=== PATIENT | female | born 1945 | race Caucasian/White ===

== ENCOUNTER 2016-09-24 07:44 | Emergency (ER) | payer OTHER ==
--- NOTE | 2016-09-24 08:04 | EDPHY ---
HPI/HX/ROS/PE/MDM Narrative: CHIEF COMPLAINT: Fall, syncope HPI: The patient is a 71-year-old female with no known history of stroke or cardiovascular disease. She states she has been in her usual state of health until last night. She had approximately 2 glasses of wine last night but did not feel any abnormal effects from this. At approximately 2:00 a.m., she woke up to use the bathroom. After standing up from the toilet she felt very dizzy and lightheaded. She let her dog out of the back door and then woke up on the ground having hit her head and passed out. She apparently then woke up and lost consciousness again. After this, she went back to bed. She currently complains of pain to her posterior head as well as continued sense of being off balance. The patient reports that over the last month she has had several episodes of feeling off balance, feeling that her eyes are doing strange things and one episode in which she lost most of the vision in her right eye for approximately 5 minutes. She did not seek medical attention for this. She currently denies any numbness, weakness or tingling. She recently had some botox injections to the face. REVIEW OF SYSTEMS: Aside from elements discussed in the HPI, a comprehensive 10-point review of systems was reviewed and is negative. PMH: No history of stroke. No history of diabetes. SOCIAL HISTORY: . Owns her own business. Denies drug abuse. PHYSICAL EXAM: General:Patient is alert, in no acute distress. Head: Swelling and mild depression noted to posterior head. No lacerations seen. ENT:Eyes are normal to inspection. ENT inspection normal. Neck: Normal inspection. Full range of motion. Respiratory:No respiratory distress. Breath sounds normal bilaterally. Cardiovascular: Regular rate and rhythm. Strong peripheral pulses. Normal cap refill. Abdomen:The abdomen is nontender to palpation. There are no peritoneal signs. There are normal bowel sounds. Back: Normal to inspection. No tenderness to palpation. Skin: Normal color. No rash. Warm and dry. Extremities: Normal appearance. Full range of motion. Neuro: Oriented x3. Normal motor function. Normal sensory function. No pronator drift. Normal finger-nose bilaterally. Cranial nerves intact. Small subtle left-sided facial droop is present, but this goes completely away when I asked the patient to show me her teeth. ED Course: EKG was ordered and interpreted by myself. Please see [facility] system for official reading. Impression: NSR. CTH: read by Dr. Webster as normal. MRI Brain: ready by Dr. Acosta as negative for acute pathology. MDM: This patient presents after syncopal episode this morning. By history, this sounds likely secondary to some combination of dehydration, post micturition syncope, possibly alcohol use. Performed an extensive workup in the ER which is negative for signs of cardiac arrhythmia, renal failure, electrolyte abnormality or anemia. Her CT head is negative for signs of severe head trauma. Given her ongoing neurologic symptoms, I felt that an MRI was necessary in order to rule out stroke or possible TIA. Luckily, this test is negative. The patient is comfortable following up with her primary physician for further workup. - Data Points Laboratory Results: Laboratory Results 09/24/16 08:05 09/24/16 08:05 09/24/16 09/24/16 09/24/16 08:05 08:05 08:05 WBC 9.37 10^3/uL 10^3/uL (3.80-9.50) RBC 4.10 10^6/uL L 10^6/uL (4.18-5.33) Hgb 13.0 g/dL g/dL (12.6-16.3) Hct 38.2 % % (38.0-47.0) MCV 93.2 fL fL (81.5-99.8) MCH 31.7 pg pg (27.9-34.1) MCHC 34.0 g/dL g/dL (32.4-36.7) RDW 13.5 % % (11.5-15.2) Plt Count 211 10^3/uL 10^3/uL (150-400) MPV 11.3 fL fL (8.7-11.7) Neut % (Auto) 84.6 % H % (39.3-74.2) Lymph % (Auto) 10.5 % L % (15.0-45.0) [place] % (Auto) 3.6 % L % (4.5-13.0) Eos % (Auto) 0.5 % L % (0.6-7.6) Baso % (Auto) 0.5 % % (0.3-1.7) Nucleat RBC Rel Count 0.0 % % (0.0-0.2) Absolute Neuts (auto) 7.92 10^3/uL H 10^3/uL (1.70-6.50) Absolute Lymphs (auto) 0.98 10^3/uL L 10^3/uL (1.00-3.00) Absolute Monos (auto) 0.34 10^3/uL 10^3/uL (0.30-0.80) Absolute Eos (auto) 0.05 10^3/uL 10^3/uL (0.03-0.40) Absolute Basos (auto) 0.05 10^3/uL 10^3/uL (0.02-0.10) Absolute Nucleated RBC 0.00 10^3/uL 10^3/uL (0-0.01) Immature Gran % 0.3 % % (0.0-1.1) Immature Gran # 0.03 10^3/uL 10^3/uL (0.00-0.10) PT 13.1 SEC SEC (12.0-15.0) INR 1.00 (0.83-1.16) APTT 24.2 SEC SEC (23.0-38.0) Sodium 141 mEq/L mEq/L (134-144) Potassium 4.1 mEq/L mEq/L (3.5-5.2) Chloride 105 mEq/L mEq/L (97-110) Carbon Dioxide 24 mEq/l mEq/l (22-31) Anion Gap 12 mEq/L mEq/L (8-16) BUN 30 mg/dL H mg/dL (7-23) Creatinine 0.8 mg/dL mg/dL (0.6-1.0) Estimated GFR > 60 Glucose 144 mg/dL H mg/dL (70-100) Calcium 9.5 mg/dL mg/dL (8.5-10.4) Troponin I < 0.012 ng/mL ng/mL (0-0.034) General Time Seen by Provider: 09/24/16 07:51 Initial Vital Signs: Initial Vital Signs Temperature (C) 36.4 C 09/24/16 07:48 Heart Rate 74 09/24/16 07:48 Respiratory Rate 20 09/24/16 07:48 Blood Pressure 138/76 H 09/24/16 07:48 O2 Sat (%) 96 09/24/16 07:48 O2 Delivery Mode Room Air Allergies/Adverse Reactions: No Known Allergies Allergy (Unverified 08/12/12 20:17) Home Medications: Medication Instructions Recorded Estrogens, Conjugated [Premarin] 0.625 mg PO Q2EVEN 12/05/11 celeCOXIB [Celebrex] 200 mg PO DAILY 12/05/11 Ondansetron Odt [Zofran Odt] 4 mg PO Q4PRN PRN #10 tab 09/24/16 Departure - Departure Disposition: Home, Routine, Self-Care Clinical Impression: Syncope Condition: Good Instructions: Syncope (ED) Additional Instructions: Follow-up with your primary doctor within 72 hours. Return to the Emergency Department for fever, chest pain, numbness, weakness or tingling, shortness of breath, increasing pain or other worsening of condition. Referrals: Emily Centeno MD [Primary Care Provider] - As per Instructions Prescriptions: Ondansetron Odt [Zofran Odt] 4 mg PO Q4PRN PRN #10 tab PRN Reason: Nausea
--- NOTE | 2016-09-24 08:05 | CPEKG ---
Heart Rate: 78 RR Interval: 769 P-R Interval: 156 QRSD Interval: 78 QT Interval: 400 QTC Interval: 456 P [place]: 78 QRS [place]: 66 T Wave [place]: 48 EKG Severity - NORMAL ECG - EKG Impression: SINUS RHYTHM Electronically Signed By: Myron Sharma 24-Sep-2016 14:52:39
[2016-09-24 08:12] LABS: % IMMATURE GRANULYOCYTES 0.3 % (0.0-1.1); ABSOLUTE IMMATURE GRANULOCYTES 0.03 10^3/uL (0.00-0.10); ADD DIFF? NO; ADD MORPH? NO; ADD SCAN? NO; ATYPICAL LYMPHOCYTE FLAG 10 (0-99); FRAGMENT RBC FLAG 0 (0-99); HEMATOCRIT 38.2 % (38.0-47.0); LEFT SHIFT FLG 0 (0-99); LIPEMIA HEMOLYSIS FLAG 90 (0-99); MEAN CELL HEMOGLOBIN 31.7 pg (27.9-34.1); MEAN CELL VOLUME 93.2 fL (81.5-99.8); MEAN PLATELET VOLUME 11.3 fL (8.7-11.7); PLATELET CLUMPS FLAG 0 (0-99); PLATELET COUNT 211 10^3/uL (150-400); RED CELL DISTRIBUTION WIDTH 13.5 % (11.5-15.2)
[2016-09-24 08:28] LABS: PROTIME(PATIENT) 13.1 SEC (12.0-15.0)
[2016-09-24 08:30] LABS: ANION GAP 12 mEq/L (8-16); CALCIUM 9.5 mg/dL (8.5-10.4); CARBON DIOXIDE 24 mEq/l (22-31); CHLORIDE 105 mEq/L (97-110); CREATININE 0.8 mg/dL (0.6-1.0); GLOMERULAR FILTRATION RATE > 60; GLUCOSE 144 mg/dL (70-100); POTASSIUM 4.1 mEq/L (3.5-5.2); SODIUM 141 mEq/L (134-144)
[2016-09-24 08:43] LABS: TROPONIN I < 0.012 ng/mL (0-0.034)
[2016-09-24 08:46] LABS: APTT 24.2 SEC (23.0-38.0)
[2016-09-24 09:25] VITALS: RESP 16
[2016-09-24] MEDS ORDERED: ONDANSETRON 4 MG/2 ML VIAL ONE (10:49)
[2016-09-24] MEDS ORDERED: ONDANSETRON 4 MG/2 ML VIAL IVP ONE (10:55)
[2016-09-24] MEDS ORDERED: MECLIZINE HCL 25 MG TAB PO ONE ×2 (11:01→11:02)
[2016-09-24] MEDS ORDERED: ACETAMINOPHEN 500 MG TAB PO ONE (12:16)
[2016-09-24 12:18] VITALS: BP 127/72; PULSE 76; TEMP 98.2; O2SAT 98
== END 2016-09-24 12:26 | disposition home or self-care (01) ==
DX: R55 Syncope and collapse (principal)
CPT/HCPCS: 70450; 70551; 93005; 96374; 99285; J2405

== ENCOUNTER 2016-10-18 14:48 | Emergency (ER) | payer OTHER ==
[2016-10-18 14:55] VITALS: O2SAT 97
--- NOTE | 2016-10-18 15:38 | CPEKG ---
Heart Rate: 66 RR Interval: 909 P-R Interval: 164 QRSD Interval: 86 QT Interval: 392 QTC Interval: 411 P [place]: 68 QRS [place]: 41 T Wave [place]: 32 EKG Severity - NORMAL ECG - EKG Impression: SINUS RHYTHM Electronically Signed By: Verna Hernández 19-Oct-2016 00:13:50
--- NOTE | 2016-10-18 16:04 | EDPHY ---
H & P Stated Complaint: dizzyness a night x 1 week/seen 3 wks ago for same/full neuro cardiac jailyn Source: Patient, Family, Old records Exam Limitations: No limitations - Personal History Current Tetanus/Diphtheria Vaccine: Yes - Medical/Surgical History Hx Asthma: No Hx Chronic Respiratory Disease: No Hx Diabetes: No Hx Cardiac Disease: No Hx Renal Disease: No Hx Cirrhosis: No Hx Alcoholism: No Hx HIV/AIDS: No Hx Splenectomy or Spleen Trauma: No Other PMH: botox fillers to mouth tuesday - Social History Smoking Status: Never smoked HPI/ROS: CHIEF COMPLAINT: Dizziness, lightheadedness, sent by PCP for CT scan HISTORY OF PRESENT ILLNESS: patient reports 1 week history of feeling dizzy and lightheaded. This is after having similar complaints starting August 25 that had resolved for several days prior to returning. No headache. No neck pain. No chest pain. No syncope since September 24. The initial event was a vasovagal episode resulting in a closed head injury. She was seen and treated here. She was doing well until a week ago when she had return of her dizziness and lightheadedness. Symptoms are worse when she lays down and sits up from that position. There are sometimes worse when ambulating. She has no new trauma or injury. She is not taking blood thinners. She contacted her primary care physician Dr. Centeno, and they recommended that she have another CT scan performed. No other associated complaints or modifying factors. REVIEW OF SYSTEMS: Ten systems reviewed and are negative unless otherwise noted in the HPI PERTINENT MEDICAL HISTORY: Reviewed EXAMINATION General Appearance: Alert, no distress Head: normocephalic, atraumatic. No hematoma. No depression. No Murdock sign. No raccoon eyes. Eyes: Pupils equal and round, no conjunctival pallor or injection ENT, Mouth: Mucous membranes moist . Uvula midline. No erythema or edema. Neck: Normal inspection, supple, non-tender . Painless range of motion all planes. No meningismus. Respiratory: Lungs are clear to auscultation . No wheezing, rhonchi or crackles. Cardiovascular: Regular rate and rhythm . No murmur. Gastrointestinal: Abdomen is soft and nontender Back: non-tender, no bony abnormalities Neurological: GCS 15. A&O, nonfocal, normal gait. Strength is symmetric in all 4 limbs. No pronator drift. No dysmetria. Skin: Warm and dry, no rash . No petechiae or purpura. No lacerations or abrasions. Extremities: Nontender, no pedal edema Psychiatric: Mood and affect normal DIFFERENTIAL DIAGNOSES: Including but not limited to Postconcussion syndrome, vertigo, electrolyte disturbance, dizziness, lightheadedness, dehydration MDM: 4:05 p.m. ongoing dizziness and lightheadedness. Patient had an initial injury on September 24. She had normal CT scan that they. Normal MRI scan that day. She had several days of resolution until 1 week ago. At this time she has no focal deficits. Her neuro exam is completely normal. I will order CT scan of the head at the request of her primary care physician. The patient is comfortable this plan. 4:20 p.m. notified by radiologist Dr. Kang. CT scan of the head is unremarkable for any acute findings. 4:25 p.m. I have re-evaluated the patient. She is feeling well. I have updated her regarding the negative CT scan findings. She is comfortable being discharged home at this time. I will refer her to Dr. Jimenez as well as her primary care physician. We will try a lower dose of the meclizine that she has at home as it has made her too sleepy. She is comfortable with this plan and discharged home in stable condition, neuro intact and ambulatory without assistance. SUPERVISION: Independently evaluated case discussed with Dr. Hernández ([place]) Constitutional: Initial Vital Signs Temperature (C) 36.9 C 10/18/16 14:52 Heart Rate 82 10/18/16 14:52 Respiratory Rate 18 10/18/16 14:52 Blood Pressure 148/86 H 10/18/16 14:52 O2 Sat (%) 97 10/18/16 14:52 O2 Delivery Mode Room Air Allergies/Adverse Reactions: No Known Allergies Allergy (Verified 10/18/16 14:52) Home Medications: Medication Instructions Recorded Estrogens, Conjugated [Premarin] 0.625 mg PO Q2EVEN 12/05/11 celeCOXIB [Celebrex] 200 mg PO DAILY 12/05/11 Ondansetron Odt [Zofran Odt] 4 mg PO Q4PRN PRN #10 tab 09/24/16 Meclizine HCl [Meclizine HCl 12.5 12.5 mg PO BID #12 tab 10/18/16 mg (*)] Medical Decision Making Other Provider: The patient wasevaluatedand managed by themidlevel provider. Idiscussed the patient's presentation and course with thephysicianassistantor nurse practitionerand agree with theevaluation. My co-signature indicates that I have reviewed this chart and I agree with the findings and plan of care as documented. I am the secondary supervisingphysician. (Verna Hernández) Departure - Departure Disposition: Home, Routine, Self-Care Clinical Impression: Dizziness, Post concussion syndrome Condition: Good Instructions: Post Concussion Syndrome (ED), Lightheadedness (ED), Dizziness ( ED) Additional Instructions: meclizine 12.5 mg every 8 hours as needed. Follow up with primary care physician Dr. Jimenez. Referrals: Emily Centeno MD [Primary Care Provider] - As per Instructions Teagan Jimenez MD [Medical Doctor] - As per Instructions Prescriptions: Meclizine HCl [Meclizine HCl 12.5 mg (*)] 12.5 mg PO BID #12 tab
[2016-10-18 16:41] VITALS: BP 143/95; PULSE 65; RESP 16; TEMP 97.9
== END 2016-10-18 16:39 | disposition home or self-care (01) ==
DX: G44.309 Post-traumatic headache, unspecified, not intractable (principal); F07.81 Postconcussional syndrome

== ENCOUNTER → 2017-03-01 | Outpatient (CLI) | payer OTHER | LOC: FIMAGING 14:05 | PROVIDERS: ATTEND Internal Medicine | DX: Z12.31 Encounter for screening mammogram for malignant neoplasm of breast (principal) | CPT/HCPCS: G0202 ==

== ENCOUNTER 2018-01-05 16:48 | Emergency (ER) | payer OTHER ==
--- NOTE | 2018-01-05 17:14 | EDPHY ---
H & P Stated Complaint: N/V/D Time Seen by Provider: 01/05/18 17:10 HPI/ROS: CHIEF COMPLAINT: Vomiting and diarrhea HISTORY OF PRESENT ILLNESS: The patient presents to the ED with a 1 day history of vomiting and diarrhea. She denies fever or associated pain. She denies hematemesis or hematochezia. The patient denies any recent antibiotic use or travel outside the [place]. The patient denies any upper respiratory symptoms. The patient denies any additional complaints. Past surgical history is significant for appendectomy and cholecystectomy. The patient takes Premarin and Celebrex as an outpatient. REVIEW OF SYSTEMS: A comprehensive 10 point review of systems is otherwise negative aside from elements mentioned in the history of present illness. Source: Patient Exam Limitations: No limitations - Personal History Current Tetanus Diphtheria and Acellular Pertussis (TDAP): Yes - Medical/Surgical History Hx Asthma: No Hx Chronic Respiratory Disease: No Hx Diabetes: No Hx Cardiac Disease: No Hx Renal Disease: No Hx Cirrhosis: No Hx Alcoholism: No Hx HIV/AIDS: No Hx Splenectomy or Spleen Trauma: No Other PMH: botox fillers to mouth tuesday BILAT HIP REPLACEMENTS/CHOLY/APPY IMBEDED IUD/HYSTERECTOMY - Social History Smoking Status: Never smoked - Physical Exam Exam: General Appearance: Alert, no distress Eyes: Pupils equal and round no pallor or injection ENT, Mouth: Dry mucous membranes Respiratory: There are no retractions, lungs are clear to auscultation Cardiovascular: Regular rate and rhythm Gastrointestinal: Abdomen is soft and nontender, no masses, bowel sounds normal Neurological: 5/5 strength all 4 extremities Skin: Warm and dry, no rashes Musculoskeletal: Neck is supple nontender Extremities: symmetrical, full range of motion Constitutional: Initial Vital Signs Temperature (C) 36.5 C 01/05/18 16:55 Heart Rate 91 01/05/18 16:55 Respiratory Rate 17 01/05/18 16:55 Blood Pressure 128/75 H 01/05/18 16:55 O2 Sat (%) 96 01/05/18 16:55 O2 Delivery Mode Room Air Allergies/Adverse Reactions: No Known Allergies Allergy (Verified 01/05/18 16:53) Home Medications: Medication Instructions Recorded Estrogens, Conjugated [Premarin] 0.625 mg PO Q2EVEN 12/05/11 celeCOXIB [Celebrex] 200 mg PO DAILY 12/05/11 Ondansetron Odt [Zofran Odt] 4 mg PO Q4PRN PRN #10 tab 09/24/16 Promethazine HCl [Phenergan 12.5mg 12.5 mg PO Q6 PRN #20 tablet 01/05/18 tab] Medical Decision Making ED Course/Re-evaluation: The patient presents the ED with symptoms consistent with gastroenteritis. Her abdominal examination is reassuring without evidence of any focal tenderness. Her vital signs are stable. She had an IV established. She received additional 2 L of normal saline. She received 12.5 mg of Phenergan. The patient was re-evaluated at 7:15 p.m.. Her abdominal examination remains entirely benign. She did have a elevated BUN consistent with dehydration. She is now received 2 L of fluid and is drinking without recurrent vomiting. She is requesting a prescription for Phenergan which she will be provided. She has been informed not to take this with the Zofran she was provided earlier today. The patient will be discharged home with customary aftercare instructions and return precautions. Differential Diagnosis: Differential diagnosis considered includes gastroenteritis, dehydration, metabolic abnormality, renal failure - Data Points Laboratory Results: Laboratory Results 01/05/18 17:40 01/05/18 17:40 01/05/18 01/05/18 17:40 17:40 WBC 7.60 10^3/uL 10^3/uL (3.80-9.50) RBC 4.31 10^6/uL 10^6/uL (4.18-5.33) Hgb 13.6 g/dL g/dL (12.6-16.3) Hct 41.0 % % (38.0-47.0) MCV 95.1 fL fL (81.5-99.8) MCH 31.6 pg pg (27.9-34.1) MCHC 33.2 g/dL g/dL (32.4-36.7) RDW 14.0 % % (11.5-15.2) Plt Count 195 10^3/uL 10^3/uL (150-400) MPV 11.8 fL H fL (8.7-11.7) Neut % (Auto) Not Reported Lymph % (Auto) Not Reported [place] % (Auto) Not Reported Eos % (Auto) Not Reported Baso % (Auto) Not Reported Nucleat RBC Rel Count Not Reported Absolute Neuts (auto) Not Reported Absolute Lymphs (auto) Not Reported Absolute Monos (auto) Not Reported Absolute Eos (auto) Not Reported Absolute Basos (auto) Not Reported Absolute Nucleated RBC Not Reported Immature Gran % Not Reported Seg Neutrophils % 94.0 % % Band Neutrophils % 0 % % Lymphocytes % 2.0 % % Monocytes % 4.0 % % Eosinophils % 0 % % Basophils % 0 % % Metamyelocytes % 0 % % Myelocytes % 0 % % Promyelocytes % 0 % % Blast Cells % 0 % % Immature Gran # Not Reported Absolute Seg Neuts 7.14 10^/uL H 10^/uL (1.70-6.50) Absolute Band Neuts 0.00 10^3/uL 10^3/uL (0.00-0.70) Absolute Lymphocytes 0.15 10^3/uL L 10^3/uL (1.00-3.00) Absolute Monocytes 0.30 10^3/uL 10^3/uL (0.30-0.80) Absolute Eosinophils 0.00 10^3/uL L 10^3/uL (0.03-0.40) Absolute Basophils 0.00 10^3/uL L 10^3/uL (0.02-0.10) Absolute Metamyelocyte 0.00 10^3/mL 10^3/mL (0.00-0.00) Absolute Myelocytes 0.00 10^3/mL 10^3/mL (0.00-0.00) Absolute Promyelocytes 0.00 10^3/uL 10^3/uL (0.00-0.00) Absolute Plasma Cells 0.00 10^3/uL 10^3/uL (0.00-0.00) Nucleated RBCs 0 /100 WBC /100 WBC (0-0) RBC/WBC/PLT Morphology NORMAL (NORMAL) Absolute Blast Cells 0.00 10^3/uL 10^3/uL (0.00-0.00) Plasma Cells % 0 % % Platelet Estimate ADEQUATE (ADEQ) Sodium 138 mEq/L mEq/L (135-145) Potassium 4.0 mEq/L mEq/L (3.3-5.0) Chloride 111 mEq/L H mEq/L (97-110) Carbon Dioxide 20 mEq/l L mEq/l (22-31) Anion Gap 7 mEq/L L mEq/L (8-16) BUN 30 mg/dL H mg/dL (7-23) Creatinine 0.7 mg/dL mg/dL (0.6-1.0) Estimated GFR > 60 Glucose 83 mg/dL mg/dL (70-100) Calcium 9.1 mg/dL mg/dL (8.5-10.4) Medications Given: Discontinued Medications Sodium Chloride (Ns) 1,000 mls @ 0 mls/hr IV EDNOW ONE; Wide Open PRN Reason: Protocol Stop: 01/05/18 17:27 Last Admin: 01/05/18 17:40 Dose: 1,000 mls Promethazine HCl (Phenergan) 12.5 mg IVP EDNOW ONE Stop: 01/05/18 17:27 Last Admin: 01/05/18 17:40 Dose: 12.5 mg Departure - Departure Disposition: Home, Routine, Self-Care Clinical Impression: Gastroenteritis, Vomiting, Dehydration Condition: Good Instructions: Dehydration (ED) Additional Instructions: 1. Phenergan as needed for nausea and vomiting. 2. Return to the ED for any abdominal pain or worsening symptoms. 3. Follow up with your primary care provider as scheduled. Referrals: Emily Centeno MD [Primary Care Provider] - As per Instructions Prescriptions: Promethazine HCl [Phenergan 12.5mg tab] 12.5 mg PO Q6 PRN #20 tablet PRN Reason: for nausea
[2018-01-05] MEDS ORDERED: NS 1,000 ML IV ONE (17:26)
[2018-01-05] MEDS ORDERED: PROMETHAZINE HCL 25 MG/ML INJ IVP ONE (17:26)
[2018-01-05 18:19] LABS: PLATELET COUNT 195 10^3/uL (150-400)
[2018-01-05 19:29] VITALS: BP 128/74
== END 2018-01-05 19:27 | disposition home or self-care (01) ==
DX: K52.9 Noninfective gastroenteritis and colitis, unspecified (principal); E86.0 Dehydration; E86.9 Volume depletion, unspecified
CPT/HCPCS: 96361; 96374; 99284; J2550

== ENCOUNTER → 2018-03-06 | Outpatient (CLI) | payer OTHER | LOC: FIMAGING 10:19 | PROVIDERS: ATTEND Family Medicine | DX: Z12.31 Encounter for screening mammogram for malignant neoplasm of breast (principal) ==

== ENCOUNTER → 2018-05-05 | Outpatient (CLI) | payer OTHER | LOC: FIMAGING 09:24 | PROVIDERS: ATTEND Family Medicine | DX: Z13.820 Encounter for screening for osteoporosis (principal); Z78.0 Asymptomatic menopausal state ==

== ENCOUNTER → 2018-10-11 | Outpatient (CLI) | payer OTHER | LOC: FIMAGING 14:06 | PROVIDERS: ATTEND Family Medicine | DX: N64.4 Mastodynia (principal) ==